=== PATIENT | female | born 1975 | race Caucasian/White ===

== ENCOUNTER 2017-03-23 11:16 | Emergency (ER) | payer SELFPAY ==
[~2017-03-23] VITALS: Ht 160 cm; Wt 65.0 kg
[2017-03-23 11:17] VITALS: BP 133/76; PULSE 80; RESP 14; TEMP 98.3; O2SAT 100
--- NOTE | 2017-03-23 13:31 | PD ---
HPI Chief Complaint: Injury Time Seen by Provider: 13:30 Travel History International Travel<30 days: No Contact w/Intl Traveler<30days: No Traveled to known affect area: No History of Present Illness HPI 31-year-old female presents to emergency department complaining of right shoulder pain after sleeping on it wrong 3 weeks ago. Denies injury. Worsening of shoulder pain after starting her new job 2 weeks ago. States the pain radiates down her right arm. Denies paresthesias, loss of sensation, decreased range of motion, decreased strength to the affected extremity. Has been taking ibuprofen and using a muscle rub for symptom management. Symptoms are mild in severity. Pain is aggravated with posterior extension of the shoulder. Has no other medical complaints. No known allergies. No other modifying factors or associated signs and symptoms. Allergies-Medications (Allergen,Severity, Reaction): Coded Allergies: No Known Allergies (Unverified , 03/23/17) Review of Systems Except as stated in HPI: all other systems reviewed are Neg Physical Exam Narrative GENERAL: Well-nourished, well-developed female patient, in no acute distress SKIN: Warm and dry. HEAD: Atraumatic. Normocephalic. EYES: Pupils equal and round. No scleral icterus. No injection or drainage. ENT: Mucosa pink and moist. Airway patent. NECK: Supple. Trachea midline. CARDIOVASCULAR: Regular rate. RESPIRATORY: No accessory muscle use. GASTROINTESTINAL: Flat. 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 Right upper extremity supple and non-tense with 2+ radial pulse and sensory intact without erythema or edema. No obvious deformities. No clubbing. No cyanosis. No edema. NEUROLOGICAL: Awake and alert. Oriented 3. No obvious cranial nerve deficits. Motor grossly within normal limits. Normal speech. PSYCHIATRIC: Appropriate mood and affect; insight and judgment normal. Data Data Last Documented VS Vital Signs Date Time Temp Pulse Resp B/P (MAP) Pulse Ox O2 Delivery O2 Flow Rate FiO2 03/23/17 11:17 98.3 80 14 133/76 (95) 100 MDM Medical Screen Exam Complete: Yes Emergency Medical Condition: No Differential Diagnosis Shoulder pain Narrative Course 41-year-old female with right shoulder pain. Denies injury. I do not suspect fracture, dislocation, joint separation of filled imaging is not necessary at this time. Patient provided community resource packet for outpatient follow- up. Vital signs are stable and the patient is stable for outpatient follow-up and treatment. The patient has no urgent or emergent medical complaints. There is no emergent or urgent medical need at this time. I instructed the patient to follow up with their primary care provider. A medical screening exam was performed: At the time of evaluation the presenting medical condition was determined not to be of an emergent nature. The patient was given the option of receiving additional care, but declined. Patient was given options for additional community resources from which to obtain care. The Patient Has Been advised to seek medical attention for their presenting complaint. The patient has been advised to return to the ER at any time if an emergent condition develops. Primary Impression: Encounter for medical screening examination Condition: Stable Corinne Ratliff Mar 23, 2017 13:31
== END 2017-03-23 13:39 | disposition left against medical advice (07) ==
LOC: NEPK 11:16
DX: M25.511 Pain in right shoulder (principal)
CPT/HCPCS: 99281

== ENCOUNTER 2017-07-09 12:41 | Emergency (ER) | payer SELFPAY ==
[~2017-07-09] VITALS: Ht 160 cm; Wt 60.0 kg
[2017-07-09 12:42] VITALS: BP 120/80; PULSE 80; RESP 12; TEMP 97.7; O2SAT 100
[2017-07-09] MEDS ORDERED: PROZ20CA11 PO (13:03)
[2017-07-09] MEDS ORDERED: ACID REFLUX PO (13:03)
--- NOTE | 2017-07-09 13:36 | PD ---
HPI Chief Complaint: Complaint Time Seen by Provider: 12:50 Travel History International Travel<30 days: No Contact w/Intl Traveler<30days: No Traveled to known affect area: No History of Present Illness HPI 41-year-old female with history of recurrent UTIs presents the emergency Department with 2 weeks history of frequency, urgency, and dysuria worse in the last 4 days. I significant fever or flank pain. Patient also has history of kidney stones in the past. She denies vaginal discharge. She has some mild cough and cold symptoms morning but otherwise no other constitutional complaints. She has no nausea or vomiting. She has no known drug allergies. PFSH Past Medical History ?: Not Social History Alcohol Use: Yes Tobacco Use: No Substance Use: No Allergies-Medications (Allergen,Severity, Reaction): Coded Allergies: No Known Allergies (Unverified Adverse Reaction, Unknown, 07/09/17) Reported Meds & Prescriptions Reported Meds & Active Scripts Active Reported [Acid Reflux] 1 Tab PO DAILY Prozac (Fluoxetine HCl) 20 Mg Cap 60 Mg PO DAILY Review of Systems Except as stated in HPI: all other systems reviewed are Neg General / Constitutional: No: Fever, Chills Eyes: No: Visual changes HENT: No: Headaches Cardiovascular: No: Chest Pain or Discomfort Respiratory: No: Shortness of Breath Gastrointestinal: No: Abdominal Pain Genitourinary: Positive: Urgency, Frequency, Dysuria, No: Pelvic Pain, Flank Pain, Discharge Musculoskeletal: No: Pain Skin: No Rash Neurologic: No: Weakness Psychiatric: No: Depression Endocrine: No: Polydipsia Hematologic/Lymphatic: No: Easy Bruising Physical Exam Narrative GENERAL: Patient appears in no acute distress. SKIN: Warm and dry. Normal color. Normal turgor. HEAD: Atraumatic. Normocephalic. EYES: Pupils equal and round. No scleral icterus. No injection or drainage. ENT: No nasal bleeding or discharge. Mucous membranes pink and moist. Pharynx is clear. Airway is patent. NECK: Trachea midline. Supple and nontender. CARDIOVASCULAR: Regular rate and rhythm. RESPIRATORY: No accessory muscle use. Clear to auscultation. Breath sounds equal bilaterally. GASTROINTESTINAL: Abdomen soft, non-tender, nondistended. Hepatic and splenic margins not palpable. No CVA tenderness. MUSCULOSKELETAL: Extremities without clubbing, cyanosis, or edema. No obvious deformities. NEUROLOGICAL: Awake and alert. No obvious cranial nerve deficits. Motor grossly within normal limits. Five out of 5 muscle strength in the arms and legs. Normal speech. PSYCHIATRIC: Appropriate mood and affect; insight and judgment normal. Data Data Last Documented VS Vital Signs Date Time Temp Pulse Resp B/P (MAP) Pulse Ox O2 Delivery O2 Flow Rate FiO2 07/09/17 12:42 97.7 80 12 120/80 (93) 100 Orders Orders Urinalysis - C+S If Indicated (07/09/17 12:51) Labs Laboratory Tests Test 07/09/17 12:51 [facility] Medical Decision Making Medical Screen Exam Complete: Yes Emergency Medical Condition: Yes Medical Record Reviewed: Yes Differential Diagnosis Dysuria. Urinary frequency. UTI. Narrative Course Urinalysis sent to the lab. Urine is cultured. Patient treated with Bactrim DS twice a day 7 days. Patient also given Pyridium 100 mg 3 times a day when necessary #12. Patient to follow up if symptoms do not resolve or worsen. Diagnosis Primary Impression: Urinary tract infection Referrals: [facility] Patient Instructions: Dysuria (ED), General Instructions Additional Instructions: Urine is cultured. Patient treated with Bactrim DS twice a day 7 days. Patient also given Pyridium 100 mg 3 times a day when necessary #12. Patient to follow up if symptoms do not resolve or worsen. Med/Other Pt SpecificInfo: Prescription(s) given Disposition: 01 DISCHARGE HOME Condition: Stable Monroe Rob Jul 09, 2017 13:36
[2017-07-09 13:38] LABS: AMORPHOUS SEDIMENT, URINE MOD; BACTERIA, URINE FEW /hpf; BILIRUBIN, URINE NEG (NEG); BLOOD, URINE NEG (NEG); GLUCOSE,URINE NEG (NEG); KETONE, URINE 40 mg/dL (NEG); MUCUS URINE FEW /lpf (OCC); NITRITE,URINE NEG (NEG); SQUAMOUS EPITHELIAL CELL URINE 7 /hpf (0-5); URINE COLOR YELLOW (YELLW/STRAW); URINE LEUKOCYTE ESTERASE LARGE (NEG)
[2017-07-09] MEDS ORDERED: BACT800T5 PO (14:02)
[2017-07-09] MEDS ORDERED: PHEN0.4T PO (14:02)
== END 2017-07-09 14:26 | disposition home or self-care (01) ==
LOC: NEPK 12:41
DX: N39.0 Urinary tract infection, site not specified (principal)
CPT/HCPCS: 81001; 87086; 99284

== ENCOUNTER 2017-07-20 14:05 | Emergency (ER) | payer SELFPAY ==
[~2017-07-20 14:05] MED LIST: ACID REFLUX PO; BACT800T5 PO; PHEN0.4T PO; PROZ20CA11 PO
[2017-07-20 14:07] VITALS: BP 120/57; PULSE 85; RESP 17; TEMP 98.3; O2SAT 98
[2017-07-20 15:21] LABS: BACTERIA, URINE MANY /hpf; BILIRUBIN, URINE NEG (NEG); BLOOD, URINE MOD (NEG); GLUCOSE,URINE NEG (NEG); KETONE, URINE TRACE mg/dL (NEG); MUCUS URINE FEW /lpf (OCC); NITRITE,URINE NEG (NEG); SQUAMOUS EPITHELIAL CELL URINE 6 /hpf (0-5); URINE COLOR YELLOW (YELLW/STRAW); URINE LEUKOCYTE ESTERASE LARGE (NEG); WHITE BLOOD CELL CLUMPS FEW
--- NOTE | 2017-07-20 16:08 | PD ---
HPI Chief Complaint: Complaint Time Seen by Provider: 15:48 Travel History International Travel<30 days: No Contact w/Intl Traveler<30days: No Traveled to known affect area: No History of Present Illness HPI 41-year-old female presents to the ED for evaluation of "few hours" history of dysuria, urinary frequency, urinary urgency. She notes that she noticed a piece cut tinge to her urine today. She denies fevers, chills, nausea, vomiting , abdominal pain, back pain, vaginal itching, vaginal discharge. She states that she is monogamous with a single partner for the last 4 years. She states that she recently finished a course of Bactrim for UTI and symptoms resolved but started again today. She is a current smoker. [facility] Social History Alcohol Use: Yes Tobacco Use: No Substance Use: No Allergies-Medications (Allergen,Severity, Reaction): Coded Allergies: No Known Allergies (Unverified Adverse Reaction, Unknown, 07/09/17) Reported Meds & Prescriptions Reported Meds & Active Scripts Active Macrobid (Nitrofurantoin Monoh/Nitrofur Macro) 100 Mg Cap 100 Mg PO BID 7 Days Pyridium (Phenazopyridine HCl) 100 Mg Tab 100 Mg PO Q8H PRN Bactrim DS (Sulfamethoxazole-Trimethoprim) 800-160 Mg Tab 1 Tab PO BID Reported [Acid Reflux] 1 Tab PO DAILY Prozac (Fluoxetine HCl) 20 Mg Cap 60 Mg PO DAILY Review of Systems Except as stated in HPI: all other systems reviewed are Neg Physical Exam Narrative GENERAL: Well-nourished, well-developed nontoxic appearing white female in no acute distress. SKIN: Focused skin assessment warm/dry. HEAD: Normocephalic. EYES: No scleral icterus. No injection or drainage. NECK: Supple, trachea midline. No JVD or lymphadenopathy. CARDIOVASCULAR: Regular rate and rhythm without murmurs, gallops, or rubs. RESPIRATORY: Breath sounds clear and equal bilaterally. No accessory muscle use. GASTROINTESTINAL: Abdomen soft, non-tender, nondistended. Mild suprapubic tenderness. Active bowel sounds. MUSCULOSKELETAL: No cyanosis, or edema. BACK: Nontender without obvious deformity. No CVA tenderness. Data Data Last Documented VS Vital Signs Date Time Temp Pulse Resp B/P (MAP) Pulse Ox O2 Delivery O2 Flow Rate FiO2 07/20/17 14:07 98.3 85 17 120/57 (78) 98 Orders Orders Urinalysis - C+S If Indicated (07/20/17 14:18) Ed Urine Pregnancytest Poc (07/20/17 14:18) Urine Culture (07/20/17 14:22) Ed Discharge Order (07/20/17 16:12) Labs Laboratory Tests Test 07/20/17 14:22 Urine Color YELLOW Urine Turbidity CLOUDY Urine pH 7.0 Urine Specific [place] 1.026 Urine Protein 100 mg/dL Urine Glucose (UA) NEG mg/dL Urine Ketones TRACE mg/dL Urine Occult Blood MOD Urine Nitrite NEG Urine Bilirubin NEG Urine Urobilinogen 2.0 MG/DL Urine Leukocyte Esterase LARGE Urine RBC 99 /hpf Urine WBC /hpf Urine WBC Clumps FEW Urine Squamous Epithelial Cells 6 /hpf Urine Bacteria MANY /hpf Urine Mucus FEW /lpf Microscopic Urinalysis Comment CULTURE INDICATED MDM Medical Decision Making Medical Screen Exam Complete: Yes Emergency Medical Condition: Yes Differential Diagnosis Cystitis versus pyelonephritis versus hemorrhagic cystitis versus UTI versus bladder spasm versus other Narrative Course 41-year-old female presents to the ED for evaluation of "few hours" history of dysuria, urinary frequency, urinary urgency. She notes that she noticed a pink tinge to her urine today. She states that she recently finished a course of Bactrim for UTI and symptoms resolved but started again today. Vitals reviewed. Physical exam reveals mild suprapubic tenderness but is otherwise unremarkable. UA positive for large leukocyte esterase, and innumerable WBCs, few clumps, many bacteria. I reviewed the patient's previous urine culture which grew mixed billie. Bedside urine test negative. Patient's prescribed Macrobid 100 mg twice a day 7 days. She is instructed take every pill as they're prescribed, return for worsening symptoms. She is stable and discharged home. Diagnosis Primary Impression: Hemorrhagic cystitis Referrals: Primary Care Physician Patient Instructions: General Instructions, Urinary Tract Infection in Women ( ED) Additional Instructions: Rest, hydrate. Take antibiotics until every pill is gone. Follow-up with your primary care provider Return to the ED for worsening symptoms or any urgent or emergent medical condition. Med/Other Pt SpecificInfo: Prescription(s) given Scripts Nitrofurantoin Monohydrate Macrocrystals (Macrobid) 100 Mg Cap 100 MG PO BID for Infection for 7 Days, #14 CAP 0 Refills Prov: Dario Gaines MD 07/20/17 Disposition: 01 DISCHARGE HOME Condition: Stable Octavia Roe Jul 20, 2017 16:08
[2017-07-20] MEDS ORDERED: MACR100C2 PO (16:11)
== END 2017-07-20 16:40 | disposition home or self-care (01) ==
LOC: NEPK 14:05
DX: N30.91 Cystitis, unspecified with hematuria (principal); B95.7 Other staphylococcus as the cause of diseases classified elsewhere
CPT/HCPCS: 81001; 84703; 86403; 87077; 87086; 87186; 99283

== ENCOUNTER 2017-10-26 07:39 | Emergency (ER) | payer SELFPAY ==
[~2017-10-26] VITALS: Ht 160 cm; Wt 56.5 kg
[~2017-10-26 07:39] MED LIST changes: +MACR100C2 PO
[2017-10-26 07:40] VITALS: BP 135/77; PULSE 80; RESP 16; TEMP 98.3
[2017-10-26] MEDS ORDERED: OMEP20TA93 PO (07:48)
[2017-10-26 07:55] VITALS: O2SAT 100
[2017-10-26] MEDS ORDERED: BACT800T5 PO (08:02)
[2017-10-26] MEDS ORDERED: ZOFR4TAB3 SL (08:02)
[2017-10-26] MEDS ORDERED: IBUP1TAB7 PO (08:03)
--- NOTE | 2017-10-26 08:03 | PD ---
HPI Chief Complaint: Skin Problem Time Seen by Provider: 07:47 Travel History International Travel<30 days: No Contact w/Intl Traveler<30days: No Traveled to known affect area: No History of Present Illness HPI 41-year-old female presents to the emergency department with complaint of a cut to the Palmar, distal aspect of her left third finger 5 days ago that it started having some redness, swelling and pain on this past Thursday or Thursday. Also complaining of distal aspect of left index finger being painful, and does not know why. Does not know what she cut her finger on. Up-to-date on tetanus vaccination. Reports nausea. Denies fever, vomiting. Denies paresthesias, loss of sensation, decreased range of motion, decreased strength to the affected finger. Has been taking ibuprofen for symptom management; last took at approximately 5 AM this morning. Rates pain 10/10. Constant. Throbbing. No known relieving factors. No known allergies. No primary care provider. Denies significant past medical history. Has no other medical complaints. No other modifying factors or associated signs and symptoms. [facility] Social History Alcohol Use: Yes Tobacco Use: No Substance Use: No Allergies-Medications (Allergen,Severity, Reaction): Coded Allergies: No Known Allergies (Unverified Adverse Reaction, Unknown, 10/26/17) Reported Meds & Prescriptions Reported Meds & Active Scripts Active Ibuprofen 800 Mg Tab 800 Mg PO Q6HR PRN Zofran Odt (Ondansetron Odt) 4 Mg Tab 4 Mg SL Q8HR PRN Bactrim DS (Sulfamethoxazole-Trimethoprim) 800-160 Mg Tab 1 Tab PO BID 10 Days Reported Omeprazole 20 Mg Tab 20 Mg PO DAILY Prozac (Fluoxetine HCl) 20 Mg Cap 60 Mg PO DAILY Review of Systems Except as stated in HPI: all other systems reviewed are Neg Physical Exam Narrative GENERAL: Well-nourished, well-developed female patient, in no acute distress; afebrile, nontoxic-appearing SKIN: Warm and dry. Distal, palmar aspect of left third finger with small, superficial cut with minimal surrounding erythema and edema to the pad of the finger; no drainage; no paronychia, felon; no palpable abscess; no fluctuance. Sensory intact. Fingers pink and warm. Distal aspect of left second finger with tenderness on palpation; I do not see any erythema, edema, drainage, wounds. All fingers with full range of motion and sensory intact; all fingers are pink and warm. HEAD: Atraumatic. Normocephalic. EYES: Pupils equal and round. No scleral icterus. No injection or drainage. ENT: Mucosa pink and moist. Airway patent. NECK: Trachea midline. CARDIOVASCULAR: Regular rate. RESPIRATORY: No accessory muscle use. GASTROINTESTINAL: Flat. MUSCULOSKELETAL: No obvious deformities. No clubbing. No cyanosis. No edema. NEUROLOGICAL: Awake and alert. Oriented 3. No obvious cranial nerve deficits. Motor grossly within normal limits. Normal speech. PSYCHIATRIC: Appropriate mood and affect; insight and judgment normal. Data Data Last Documented VS Vital Signs Date Time Temp Pulse Resp B/P (MAP) Pulse Ox O2 Delivery O2 Flow Rate FiO2 10/26/17 07:55 100 Room Air 10/26/17 07:40 98.3 80 16 135/77 (96) Orders Orders Ed Discharge Order (10/26/17 08:03) MDM Medical Decision Making Medical Screen Exam Complete: Yes Emergency Medical Condition: Yes Medical Record Reviewed: Yes Differential Diagnosis Paronychia, felon, infected wounds, cellulitis Narrative Course 41-year-old female with suspected distal, palmar aspect of left third finger. No signs of felon, paronychia, fluctuance. No drainage from the cut. Patient is afebrile nontoxic pain. Denies fever, vomiting. Reports feeling nauseated. Says she also gets nauseated when she takes Bactrim. Ibuprofen, Zofran, Bactrim prescribed for home. Instructed patient to follow up with primary care provider. Patient verbalizes understanding and agreement with treatment plan. Patient is medically cleared and stable for discharge. Discussed reasons to return to the emergency department. Patient agrees with treatment plan. The patients vital signs are stable and the patient is stable for outpatient follow- up and treatment. Patient discharged home, stable and in no acute distress. Diagnosis Primary Impression: Cellulitis of finger of left hand Additional Impression: Cut of finger Referrals: [facility] Primary Care Physician Patient Instructions: Cellulitis (ED), General Instructions Additional Instructions: Antibiotics as prescribed and complete full course Ibuprofen or Tylenol as directed and as needed for pain and inflammation Ice and/or heat to affected area to reduce pain and inflammation Follow-up with primary care provider Return to the emergency department immediately with worsening of symptoms Med/Other Pt SpecificInfo: Prescription(s) given Scripts Ibuprofen (Ibuprofen) 800 Mg Tab 800 MG PO Q6HR Y for PAIN, #30 TAB 0 Refills Prov: Corinne Ratliff 10/26/17 Ondansetron Odt (Zofran Odt) 4 Mg Tab 4 MG SL Q8HR Y for Nausea/Vomiting, #12 TAB 0 Refills Prov: Corinne Ratliff 10/26/17 Sulfamethoxazole-Trimethoprim (Bactrim DS) 800-160 Mg Tab 1 TAB PO BID for Infection for 10 Days, #20 TAB 0 Refills Prov: Corinne Ratliff 10/26/17 Disposition: 01 DISCHARGE HOME Condition: Stable Corinne Ratliff October 26, 2017 08:03
== END 2017-10-26 08:17 | disposition home or self-care (01) ==
LOC: NEPD 07:39
DX: L03.012 Cellulitis of left finger (principal)
CPT/HCPCS: 99283